=== PATIENT | female | born 1995 | race Caucasian/White ===

== ENCOUNTER 2018-03-13 23:36 | Emergency (ER) | payer SELFPAY ==
[2018-03-14 00:37] VITALS: BP 129/87
[2018-03-14] MEDS ORDERED: CIPROFLOXACIN HCL/DEXAMETH OTIC DROP 7.5 ML AS ONE (01:15)
[2018-03-14] MEDS ORDERED: AMOXICILLIN TRIHYDRATE 500 MG CAPSULE PO ONE (01:15)
--- NOTE | 2018-03-14 01:21 | ER Document Report ---
HPI - HPI Pain Level: 4 Notes: Patient is a 22-year-old female no significant past medical history who presents to the ED complaining of right ear pain 2-3 days. Patient states that she did try to use an antibiotic drop with minimal relief. The pain is starting to radiate down into her right jaw. She is still eating and drinking without difficulties. She is urinating normally and having normal bowel movements. She denies any dizziness or tinnitus. Denies any drainage. No other drug allergies or IV drug use. Denies any headache, fever, neck pain, URI , sore throat, chest pain, palpitations, syncope, cough, shortness of breath, wheeze, dyspnea, abdominal pain, nausea/vomiting/diarrhea, urinary retention, dysuria, hematuria, or rash. - ROS Systems Reviewed and Negative: Yes All other systems reviewed and negative - CONSTITUTIONAL Constitutional: DENIES: Fever, Chills - EENT EENT: REPORTS: Ear Pain - R ear. DENIES: Sore Throat, Eye problems - NEURO Neurology: DENIES: Headache, Weakness, Vision blurred, Dizzinesss / Vertigo - CARDIOVASCULAR Cardiovascular: DENIES: Chest pain - RESPIRATORY Respiratory: DENIES: Trouble Breathing, Coughing - GASTROINTESTINAL Gastrointestinal: DENIES: Abdominal Pain, Black / Bloody Stools - URINARY Urinary: DENIES: Dysuria, Urgency, Frequency - MUSCULOSKELETAL Musculoskeletal: DENIES: Extremity pain Past Medical History - Social History Smoking Status: Unknown if Ever Smoked Family History: Reviewed & Not Pertinent Patient has suicidal ideation: No Patient has homicidal ideation: No Renal/ Medical History: Denies: Hx Peritoneal Dialysis Vertical Provider Document - CONSTITUTIONAL Agree With Documented VS: Yes Notes: PHYSICAL EXAMINATION: GENERAL: Well-appearing, well-nourished and in no acute distress. A&Ox4. Answers questions appropriately. Moves comfortably w/o notable distress HEAD: Atraumatic, normocephalic. EYES: Pupils equal round and reactive to light, extraocular movements intact, sclera anicteric, conjunctiva are normal. ENT: Right EAC is mildly inflamed and tender. + tragus tenderness to manipulation. Lt EAC wnl. Rt TM is erythemic and bulging. Lt TM intact b/l without erythema, fluid, or perforation. No mastoid tenderness. Nares patent and without discharge. oropharynx no erythema without exudates. No tonsilar hypertrophy without erythema or exudate. No palatine shift. Uvula midline. No tongue protrusion. No drooling, hoarseness, or airway compromise. Moist mucous membranes. No sinus tenderness. NECK: Normal range of motion, supple without lymphadenopathy. No rigidity/ meningismus. LUNGS: Breath sounds clear to auscultation bilaterally and equal. No wheezes rales or rhonchi. No retractions HEART: Regular rate and rhythm without murmurs, rubs, gallops. ABDOMEN: Soft, nontender, nondistended abdomen. No guarding, no rebound. No masses appreciated. Normal bowel sounds present. No CVA tenderness bilaterally. No hepatosplenomegaly. NEUROLOGICAL: Normal speech, normal gait. Normal sensory, motor exams PSYCH: Normal mood, normal affect. SKIN: Warm, Dry, normal turgor, no rashes or lesions noted. - INFECTION CONTROL TRAVEL OUTSIDE OF THE [place] IN LAST 30 DAYS: No Course - Re-evaluation Re-evalutation: 03/14/18 01:18 Patient is an afebrile, well-hydrated, 22-year-old female who presents to the ED with an acute otitis media and externa of the right ear. Vitals are acceptable. PE is otherwise unremarkable. Patient has no significant tachycardia, tachypnea, or hypoxia. She is tolerating p.o. without difficulties. Ciprodex applied today. Amoxicillin given p.o. today. I will send her home with a prescription for Ciprodex as well as amoxicillin. Conservative measures otherwise for symptoms. Low suspicion for any sepsis, meningitis, severe dehydration, respiratory compromise, mastoiditis, or other systemic emergent condition at this time. Patient is aware that condition can change from initial presentation and she needs to monitor symptoms closely and seek medical attention with any acute changes. Recheck with your PCM in 3-5 days. Consider consult with ENT. Return to the ED with any worsening/ concerning symptoms otherwise as reviewed discharge. Patient is in agreement. - Vital Signs Vital signs: Temp Pulse Resp BP Pulse Ox 98.9 F 69 18 129/87 H 99 03/14/18 00:36 03/14/18 00:36 03/14/18 00:36 03/14/18 00:36 03/14/18 00:36 Discharge - Discharge Clinical Impression: Acute otitis media, right Acute otitis externa of right ear Qualifiers: Otitis externa type: unspecified type Qualified Code(s): H60.501 - Unspecified acute noninfective otitis externa, right ear Condition: Stable Disposition: HOME, SELF-CARE Instructions: Use of Ear Drops ([facility]), Otitis Externa ([facility]), Otitis Media ([facility]) , Amoxicillin ([facility]) Additional Instructions: Maintain adequate fluid intake Take meds as directed Keep ears clean, avoid q-tips tylenol/ibuprofen as needed over the counter cold medication as needed for symptoms Humidified air may help Wash your hands regularly F/u: with your PCM in 3-5 days for a recheck Consider consult with ENT. Return to the ED with any fever, worsening pain, chest pain, palpitations, syncope, worsening [place], neck pain/stiffness, shortness of breath, wheezing, drooling, trouble swallowing/breathing, abdominal pain, n/v/d, rash, or worsening/concerning symptoms otherwise. Prescriptions: Amoxicillin Trihydrate [Amoxil 875 mg Tablet] 1 tab PO BID #20 tablet Ciprofloxacin HCl/Dexameth [Ciprodex Otic Suspension 7.5 ml Bottle] 4 drop OT BID #1 bottle Forms: Elevated Blood Pressure Referrals: JORDAN WARE DO [ASSOCIATE] - Follow up as needed
== END 2018-03-14 01:55 | disposition home or self-care (01) ==
LOC: ER 23:36
DX: H66.91 Otitis media, unspecified, right ear (principal); H60.501 Unspecified acute noninfective otitis externa, right ear; H92.01 Otalgia, right ear
CPT/HCPCS: 99282; J3490

== ENCOUNTER → 2019-04-30 | Outpatient (CLI) | payer SELFPAY | LOC: OD 14:06 | PROVIDERS: ATTEND Nurse Practitioner Primary Care | DX: D72.829 Elevated white blood cell count, unspecified (principal) | CPT/HCPCS: 36415; 88184; 88185 ==